=== PATIENT | female | born 1950 | race Caucasian/White ===

== ENCOUNTER 2019-05-07 08:00 | Outpatient (CLI) | payer MEDICARE, MEDICAID ==
[~2019-05-07 08:00] MED LIST: CYCLOBENZAPRINE10 MG PO
--- NOTE | 2019-05-07 15:53 | NUR ---
1500 PT HAS A 100MM SYSTOLIC VARIANCE. RIGHT ARM B/P HIGHER THAN LEFT ARM. CALLED DR. GARNICA'S OFFICE AND SPOKE WITH SOTO WHO STATES SHE WILL NOTIFY DR GARNICA AND CALL ME BACK WITH INSTRUCTIONS. 1515 SPOKE WITH SOTO WHO STATES THAT RADIOLOGY WILL BE EVALUATING SOME OF HER PAST STUDIES TO CHECK HER SUBCLAVIAN. IT MAY BE NECESSARY TO GET FURTHER RADIOLOGY TESTING ON MONDAY. INFORMATION PASSED TO PATIENT. PT HAS BEEN EVALUATED BY ANESTHESIS. RESPIRATORY EDUCATION DONE BY RT.
[2019-05-07 15:54] LABS: HEMATOCRIT 38.2 % (36.0-48.0); HEMOGLOBIN 12.8 g/dL (12-16); LYMPHOCYTES 35.7 % (15-50); MCH 29.2 pg (26.0-34.0); MCHC 33.5 g/dL (31.0-37.0); MEAN PLATELET VOLUME 8.4 fL (7.4-10.4); NEUTROPHILS 60.6 % (40-80); PLATELET COUNT 222 10x3/uL (130-400); RBC 4.39 10x6/uL (4.00-5.40); WBC 6.1 10x3/uL (4.8-10.8)
[2019-05-07 16:00] LABS: INR 0.93 (0.85-1.17); PROTIME 12.5 SECONDS (11.6-15.0)
[2019-05-07 16:01] LABS: APTT 28.8 SECONDS (22.8-39.4)
[2019-05-07 16:04] LABS: BILIRUBIN NEGATIVE (NEGATIVE); GLUCOSE NEGATIVE (NEGATIVE); KETONE NEGATIVE (NEGATIVE); NITRITE POSITIVE (NEGATIVE); RED CELLS - URINE NONE SEEN /hpf (0-5); UROBILINOGEN NORMAL (NORMAL); WHITE CELLS - URINE 25-50 /hpf (NEGATIVE)
[2019-05-07 16:05] LABS: BACTERIA MANY /hpf (NEGATIVE); EPITHELIAL CELLS OCC /hpf (0-5)
[2019-05-07 16:23] LABS: ALBUMIN 3.5 g/dL (3.4-5.0); ANION GAP 13.1 mmol/L (8-16); BILIRUBIN - TOTAL 0.45 mg/dL (0.2-1.3); CARBON DIOXIDE 28.2 mmol/L (21.0-32.0); CREATININE - SERUM 1.7 mg/dL (0.6-1.3); POTASSIUM - SERUM 4.3 mmol/L (3.5-5.1); PROTEIN - SERUM 8.3 g/dL (6.4-8.2)
[2019-05-07 16:24] LABS: CHOL - HDL RATIO 5.1 ratio (2.3-4.1); LDL-HDL RATIO 3.3 ratio (1.5-3.5)
[2019-05-08] MEDS ORDERED: APAP325 MG PO (12:37)
[2019-05-08] MEDS ORDERED: BAYER CHEWABLE81 MG PO (12:38)
[2019-05-08] MEDS ORDERED: VOLTAREN100 GM TOPICAL (12:39)
[2019-05-08] MEDS ORDERED: LISINOPRIL2.5 MG PO (12:39)
[2019-05-08] MEDS ORDERED: ATIVAN0.5 MG PO (12:40)
[2019-05-08] MEDS ORDERED: MECLIZINE HCL25 MG PO (12:40)
[2019-05-08] MEDS ORDERED: RANITIDINE HCL150 M1 PO (12:41)
[2019-05-08] MEDS ORDERED: MELATONIN5 MG PO (12:41)
[2019-05-08] MEDS ORDERED: SMZ-TMP DS 800-1 TAB PO (15:40)
[2019-05-29 13:20] VITALS: BMI 25.2
== END 2019-05-07 08:01 | disposition home or self-care (01) ==
LOC: D.PAN 08:00 → EDSTATUS 05-09 07:30 → D.SDCHOLD 05-09 07:30
PROVIDERS: Anesthesiology; ATTEND Thoracic Surgery (Cardiothoracic Vascular Surgery)
DX: I65.22 Occlusion and stenosis of left carotid artery (principal)

== ENCOUNTER 2019-05-08 12:08 | Outpatient (CLI) | payer MEDICARE, MEDICAID ==
[~2019-05-08] VITALS: Ht 162.6 cm; Wt 65.0 kg
--- NOTE | ~2019-05-08 | HEMODYNAMI ---
PATIENT:CANDICE LOMBARDO MEDICAL RECORD: [id number] : 46 LOCATION:DCARLO ADMISSION DATE: 05/08/19 Generatedon:05/08/201915:05 Patient name: CANDICE LOMBARDO Patient #: [id number] SSN: [id number] : 1950 Date of study: 05/08/2019 Page: Of Hemodynamic Procedure Report Patient Data Patient Demographics Procedure consent was obtained First Name: CANDICE Gender: Female Last Name: GRUPO : 1950 Patient #: [id number] Age: 69 year(s) Race: SSN: [id number] Additional ID: [id number] Contact details Address: [address] [place] [address] State: [place] City: [facility] Zip code: [address] Past Medical History Allergies Allergen Reaction Date Comments Reported Morphine 05/08/2019 Admission Admission Data Admission Date: 05/08/2019 Admission Time: 12:08 Arrival Date: 05/08/2019 Arrival Time: 0:00 Admit Source: Other Insurance Payor: Medicare [facility] #: [id number] Height (in.): 64.17 BSA: 1.7 (m2) Height (cm.): 163 BMI: 24.46 (kg/m2) Weight (lbs.): 143.3 Weight (kg.): 65 Lab Results Lab Result Date: 05/08/2019 Lab Result Time: 0:00 Biochemistry Name Units Result Min Max BUN mg/dl 27 --(----)-* 7 18 Creatinine mg/dl 1.8 --(----)-* 0.6 1.3 eGFR ml/min 29 *-(----)-- 90 120 NONAFRICAN CBC Name Units Result Min Max Hematocrit % 37.4 *-(----)-- 42 54 Hemoglobin g/dl 12.6 -*(----)-- 13.5 17.5 Procedure Procedure Types Cath Procedure Diagnostic Procedure LHC LHC w/Coronaries Procedure Description Procedure Date Procedure Date: 05/08/2019 Procedure Start Time: 14:50 Procedure End Time: 15:04 Procedure Staff Name Function Darryn Fish MD Performing Physician Reshma Medina RT Monitor Natalie Jaquez RT Scrub Shelly Morfin RN Nurse Procedure Data Cath Procedure Fluoroscopy Diagnostic fluoroscopy Total fluoroscopy Time: 1.4 time: 1.4 min min Diagnostic fluoroscopy Total fluoroscopy dose: 25 dose: 25 mGy mGy Contrast Material Contrast Material Type Amount (ml) Isovue 370 27 Entry Location Entry Primary Successful Side Size Upsize Upsize Entry Closure Succes sful Closure Location (Fr) 1 (Fr) 2 (Fr) Remarks Device Remarks Femoral Right 5 Fr Exoseal artery Estimated blood loss: 5 ml Diagnostic catheters Device Type Used For End Catheter Placement DIAGNOSTIC IM 5Fr Procedure catheter ([id number]) Procedure Complications No complications Procedure Medications Medication Administration Route Dosage 0.9% NaCl I.V. 100 ml/hr Oxygen etCO2 Nasal cannula 2 l/min Lidocaine 2% added to field 20 Heparin Flush Bag added to field 2 bags (1000units/500ml NS) Versed I.V. 2 mg Fentanyl I.V. 50 mcg Fentanyl I.V. 50 mcg Hemodynamics Rest BSA: 1.7 (m2) HGB: 12.6 (g/dl) O2 Consumption: Estimated: 158.06 (ml/min) O2 Con sumption indexed: Estimated:92.98 (ml/min/m) Heart Rate: 73 (bpm) Snapshots Pre Cath Intra NCS Post Cath Vital Signs Time Heart Resp SPO2 etCO2 NIBP (mmHg) Rhythm Pain Sedation Rate (ipm) (%) (mmHg) Status Level (bpm) 14:36:29 79 24 97 35.9 Measuring NSR 0 (11) 10(A) , No pain 14:37:06 77 26 98 19 219/89(159) NSR 0 (11) 10(A) , No pain 14:41:40 73 20 99 39.6 195/77(152) NSR 0 (11) 10(A) , No pain 14:46:07 69 19 100 35.1 184/80(146) NSR 0 (11) 10(A) , No pain 14:50:41 69 11 100 30.6 179/79(142) NSR 0 (11) 10(A) , No pain 14:55:09 65 16 100 37.3 170/69(134) NSR 0 (11) 10(A) , No pain 14:59:33 71 13 100 35.9 163/74(128) NSR 0 (11) 10(A) , No pain 15:04:00 62 15 100 37.3 167/68(135) NSR 0 (11) 10(A) , No pain Medications Time Medication Route Dose Verified Delivered Reason Notes Eff ectiveness by by 14:34:49 0.9% NaCl I.V. 100 Darryn Shelly used for ml/hr Abe Morfin striper machine 14:34:55 Oxygen etCO2 2 Darryn Shelly used for Nasal l/min Abe Morfin procedure cannula RN 14:35:00 Lidocaine 2% added 20ml Darryn Darryn for local to vial Abe Fish MD anesthetic field 14:35:04 Heparin Flush added 2 Darryn Darryn used for Bag to bags Abe Fish MD procedure (1000units/500ml field NS) 14:48:43 Versed I.V. 2 mg Darryn Shelly for Abe Morfin sedation RN 14:48:51 Fentanyl I.V. 50 Darryn Shelly for mcg Abe Morfin sedation RN 14:53:40 Fentanyl I.V. 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 Start room use. 14:25:36 Lab Result : BUN 27 mg/dl 14:25:36 Lab Result : eGFR NONAFRICAN 29 ml/min 14:25:36 Lab Result : Creatinine 1.8 mg/dl 14:25:36 Lab Result : Hemoglobin 12.6 g/dl 14:25:36 Lab Result : Hematocrit 37.4 % 14:25:43 Arrival Date: 05/08/2019 12:00:00 AM 14:26:02 Insurance Payor : Medicare 14:26:09 Patient Height : 64.17 inches 14:26:15 Patient Weight : 143.3 lbs 14:26:18 Admit Source: Other 14:27:29 Procedure Status Elective Heart Cath (OP). 14:27:50 Time tracking: Regular hours (M-F 7:00 - 5:00) 14:27:58 Plan of Care:Hemodynamics will remain stable., Cardiac rhythm will remain stable., Comfort level will be maintained., Respiratory function will remain adequate., Patient/ family verbilizes understanding of procedure., Procedure tolerated without complication., Recovers from procedure without complications.. 14:28:06 Patient received from Pre/Post Procedure Room to CCL 1 Alert and oriented. Tansferred to table in Supine position. 14:28:09 Warm blankets applied, and courtney hugger turned on for patient comfort. 14:28:10 Correct patient and procedure confirmed by team. 14:28:10 ECG and BP/O2 sat monitors applied to patient. 14:31:18 H&P Date Dictated: 05/08/2019 Within 30 days and on chart., H&P Addendum completed by physician on day of procedure. (MUST COMPLETE FOR ALL OUTPATIENTS). 14:31:20 Pre-procedure instructions explained to patient. 14:31:20 Pre-op teaching completed and patient verbalized understanding. 14:31:26 Family unavailable. 14:31:32 Patient NPO since Midnight. 14:31:39 Patient allergic to Morphine 14:31:42 Is patient on blood thinner?No 14:31:47 Patient diabetic? BORDERLINE 14:32:14 Patient not . Patient is over age 55. 14:32:21 Previous problem with sedation/anesthesia? No ? 14:32:22 Snore? Yes 14:32:24 Sleep apnea? No 14:32:25 Deviated septum? No 14:32:25 Opens mouth fully? Yes 14:32:28 Airway obstruction? No ? 14:32:30 Sticks out tongue? Yes 14:32:34 Dentures? Yes TOP IN 14:32:45 Pre procedure: right dorsailis pedis pulse 2+ Normal; easily identifiable; not easily obliterated 14:34:40 Vital chart was started 14:34:49 0.9% NaCl 100 ml/hr I.V. was administered by Shelly Morfin RN; used for procedure; Verbal order read back and verified. 14:34:55 Oxygen 2 l/min etCO2 Nasal cannula was administered by Shelly Morfin RN; used for procedure; Verbal order read back and verified. 14:35:00 Lidocaine 2% 20ml vial added to field was administered by Darryn Fish MD; for local anesthetic; Verbal order read back and verified. 14:35:01 Patient pain scale 0/10 ?. 14:35:04 Heparin Flush Bag (1000units/500ml NS) 2 bags added to field was administered by Darryn Fish MD; used for procedure; Verbal order read back and verified. 14:35:11 IV patent on arrival in left hand with 0.9% NaCl at [facility]. 14:35:13 Lab results completed and on chart. 14:35:21 Right groin area was prepped with chlora-prep and draped in sterile fashion 14:35:22 Alarms reviewed by R. N. 14:35:22 Sharps counted by scrub and verified by R.N. 14:37:56 Stress Test: no; N/A ? 14:37:59 Risk of Mortality: 0.1 14:38:13 Risk of blood transfusion: 2.5 14:38:15 Risk of ORLANDO: 4.0 14:39:31 Full Disclosure recording started 14:39:33 Baseline sample Acquired. 14:39:42 Use device set Femoral Dx 14:39:44 ACIST Syringe (67660) opened to sterile field. 14:39:45 Bag Decanter (2002S) opened to sterile field. 14:39:46 Medline Cath Pack ([id number]) opened to sterile field. 14:39:54 DIAGNOSTIC Multipack 5Fr catheter set (XS7788) opened to sterile field. 14:39:56 SHEATH 5FR Bonnyman (HTO471) opened to sterile field. 14:39:57 EMERALD Guide Wire (294-911) opened to sterile field. 14:40:01 ACIST Hand Control (97602) opened to sterile field. 14:40:01 ACIST Manifold (78010) opened to sterile field. 14:41:34 Rhythm: sinus rhythm 14:47:00 --------ALL STOP TIME OUT------ 14:47:00 Final Timeout: patient, procedure, and site verified with staff and physician. All members of the team are in agreement. 14:47:02 Right groin site verified by team. 14:47:05 Fire Safety Assessment: A--An alcohol-based skin anteseptic being used preoperatively., C--Open oxygen or nitrous oxide is being used., D--An ESU, laser, or fiber-optic light is being used. 14:47:08 Physical assessment completed. ASA score P 2 - A patient with mild systemic disease as per Darryn Fish MD. 14:47:13 4) 15-29 Severley reduced kidney function. 14:47:17 Maximum allowable contrast dose (3.7 X eGFR X 0.75)80 ml. 14:47:23 Sedation plan: IV Moderate Sedation Medication:Versed, Fentanyl 14:47:27 Procedure started. 14:48:43 Versed 2 mg I.V. was administered by Shelly Morfin RN; for sedation; Verbal order read back and verified. 14:48:51 Fentanyl 50 mcg I.V. was administered by Shelly Morfin RN; for sedation; Verbal order read back and verified. 14:50:16 Local anesthetic to right femoral artery with Lidocaine 2% by Darryn Fish MD.INITIAL ACCESS ONLY 14:50:21 A 5 Fr sheath was inserted into the Right Femoral artery 14:51:10 A DIAGNOSTIC IM 5Fr catheter ([id number]) was advanced over the wire and used for Procedure. 14:52:49 Left carotid angiography performed. 14:53:03 Injector settings: Ml/sec: 3, Volume: 6, 14:53:40 Fentanyl 50 mcg I.V. was administered by Shelly Morfin RN; for sedation; Verbal order read back and verified. 14:54:10 Left subclavian angiography performed 14:54:37 Injector settings: Ml/sec: 3, Volume: 6, 14:55:50 Catheter removed. 14:57:20 EXOSEAL 5Fr (EX500) opened to sterile field. 14:59:04 Sheath removed intact; hemostasis achieved with Exoseal to the Right Femoral artery. 15:00:15 Procedure ended.(Physican Out) 15:00:20 Fluoroscopy time 01.40 minutes. 15:00:28 Fluoroscopy dose: 25 mGy 15:00:28 Flurop Dose total: 25 15:00:39 Dose Area Product 3034 mGy/cm. 15:00:43 Contrast amount:Isovue 370 27ml. 15:00:47 Maximum allowable dose exceeded? No. 15:00:48 Sharps counted by scrub and verified by R.N. 15:00:54 Post-op/insertion site Right Femoral artery dressed using a 4 x 4 and Tegaderm. 15:00:58 Post right femoral artery:stable, soft, clean and dry 15:01:01 Post Procedure Pulses reassessed and unchanged 15:01:04 Post procedure: right dorsailis pedis pulse 2+ Normal; easily identifiable; not easily obliterated. 15:01:07 Post-procedure physical assessment completed. ASA score P 2 - A patient with mild systemic disease as per Darryn Fish MD. 15:01:09 Post procedure rhythm: unchanged. 15:01:12 Estimated blood loss: 5 ml 15:01:14 Post procedure instruction explained to patient.Patient verbalizes understanding. 15:01:15 Patient needs reinforcement of post procedure teaching. 15:04:03 Procedure and supply charges have been captured, reviewed, submitted and are correct. 15:04:07 Procedure Complication : No complications 15:04:31 4Vessel Findings: surgery consult 15:04:32 Operative report dictated upon procedure completion. 15:04:32 See physician's report for complete and final results. 15:04:36 Report given to Pre/Post Procedure Room. 15:04:40 Patient transfered to Pre/Post Procedure Room with Stretcher. 15:04:42 Procedure ended. 15:04:42 Full Disclosure recording stopped 15:04:46 End room use (Document Last) 15:04:57 End room use (Document Last) 15:05:17 End room use (Document Last) 15:05:36 Vital chart was stopped Device Usage Item Name Manufacture Quantity Catalog Hospital Part Current Minimal L ot# / Number Charge Number Stock Stock Serial# Code ACIST Acist 1 06941 921536 907112 343085 20 Syringe Medical (01270) Systems Inc Bag Microtek 1 163853 78618 994153 5 Decanter Medical Inc. () Medline Medline 1 [id number] 630727 72487 969982 5 Cath Pack ([id number]) DIAGNOSTIC Cardinal 1 MD2854 096514 09507 895132 30 Multipack Health 5Fr catheter set (NO6566) SHEATH 5FR Terumo 1 NRO214 262572 851924 101176 5 Bonnyman (DKL257) EMERALD Cardinal 1 757-472 411954 053019 419898 5 Guide Wire [facility] (502-455) ACIST Hand Acist 1 89335 961021 591871 557089 5 Control Medical (14075) Systems Inc ACIST Acist 1 47836 587958 890299 680426 5 Manifold Medical (43860) Systems Inc DIAGNOSTIC Cardinal 1 177363P 257481 943210 155909 5 IM 5Fr Health catheter ([id number]) EXOSEAL 5Fr Cardinal 1 EX500 896729 754664 816410 10 (EX500) Health Signature Audit [place] Stage Time Signature Unsigned Intra-Procedure 05/08/2019 Reshma Medina 3:04:57 PM RT(R) Intra-Procedure 05/08/2019 Shelly Morfin 3:05:17 PM RN Intra-Procedure 05/08/2019 Darryn Fish MD 3:05:34 PM [facility] [address] [place] [address]
[2019-05-08] MEDS ORDERED: APAP325 MG PO (12:37)
[2019-05-08] MEDS ORDERED: BAYER CHEWABLE81 MG PO (12:38)
[2019-05-08] MEDS ORDERED: VOLTAREN100 GM TOPICAL (12:39)
[2019-05-08] MEDS ORDERED: LISINOPRIL2.5 MG PO (12:39)
[2019-05-08] MEDS ORDERED: ATIVAN0.5 MG PO (12:40)
[2019-05-08] MEDS ORDERED: MECLIZINE HCL25 MG PO (12:40)
[2019-05-08] MEDS ORDERED: RANITIDINE HCL150 M1 PO (12:41)
[2019-05-08] MEDS ORDERED: MELATONIN5 MG PO (12:41)
[2019-05-08 12:46] VITALS: BP 152/95; Ht 162.6 cm; Wt 65.0 kg
[2019-05-08 13:22] LABS: ANION GAP 12.5 mmol/L (8-16); CALCIUM 9.2 mg/dL (8.5-10.1); CARBON DIOXIDE 27.8 mmol/L (21.0-32.0); CHOL - HDL RATIO 4.2 ratio (2.3-4.1); CREATININE - SERUM 1.8 mg/dL (0.6-1.3); LDL-HDL RATIO 2.7 ratio (1.5-3.5); POTASSIUM - SERUM 4.3 mmol/L (3.5-5.1)
[2019-05-08 13:39] LABS: HEMATOCRIT 37.4 % (36.0-48.0); HEMOGLOBIN 12.6 g/dL (12-16); LYMPHOCYTES 32.7 % (15-50); MCH 29.2 pg (26.0-34.0); MCHC 33.7 g/dL (31.0-37.0); MCV 86.6 fL (80.0-100.0); MEAN PLATELET VOLUME 9.1 fL (7.4-10.4); NEUTROPHILS 61.1 % (40-80); PLATELET COUNT 248 10x3/uL (130-400); RBC 4.32 10x6/uL (4.00-5.40); RDW 11.9 % (11.5-14.5); WBC 5.6 10x3/uL (4.8-10.8)
[2019-05-08 14:28] LABS: BILIRUBIN NEGATIVE (NEGATIVE); GLUCOSE NEGATIVE (NEGATIVE); KETONE NEGATIVE (NEGATIVE); NITRITE POSITIVE (NEGATIVE); UROBILINOGEN NORMAL (NORMAL)
[2019-05-08 14:29] LABS: BACTERIA MANY /hpf (NEGATIVE); EPITHELIAL CELLS 0-5 /hpf (0-5); RED CELLS - URINE OCC /hpf (0-5)
--- NOTE | 2019-05-08 15:12 | NUR ---
PT ARRIVED BY STRETCHER. PLACED ON MONITORS. ASSESSMENT COMPLETED. VSS. CALL LIGHT WITHIN REACH. NO FAMILY AT BEDSIDE AT THIS TIME.
--- NOTE | 2019-05-08 15:27 | NUR ---
RIGHT GROIN DRESSING C/D/I. NO S/S OF HEMATOMA NOTED. CALL LIGHT WITHIN REACH.
[2019-05-08] MEDS ORDERED: SMZ-TMP DS 800-1 TAB PO (15:40)
--- NOTE | 2019-05-08 15:57 | NUR ---
RIGHT GROIN DRESSING C/D/I. NO S/S OF HEMATOMA NOTED. CALL LIGHT WITHIN REACH. VSS. NO NEEDS AT THIS TIME. TOLERATING SIPS OF WATER. DENIES NAUSEA/PAIN.
--- NOTE | 2019-05-08 16:30 | NUR ---
HEAD OF BED INC TO 30 DEGREES. TOLERATED WELL. RIGHT GROIN DRESSING C/D/I. NO S/S OF HEMATOMA NOTED. PT SET UP WITH SANDWICH TRAY AND DRINK. DENIES NAUSEA/PAIN AT THIS TIME.
--- NOTE | 2019-05-08 16:55 | NUR ---
PT ON BEDPAN. VOIDED APPROX 250cc OF PETEY COLORED URINE. NARESH-CARE GIVEN.
--- NOTE | 2019-05-08 17:18 | NUR ---
RIGHT GROIN DRESSING C/D/I. NO S/S OF HEMATOMA NOTED. DISCUSSED DISCHARGE INSTRUCTIONS WITH PT. SHE VOICED UNDERSTANDING. DR. GARNICA'S NURSE SOTO, RN CALLED IN BACTRIM RX TO PT'S PHARMACY. PT IS AWARE. PIV D/C'D WITH CATH TIP INTACT. TOLERATED WELL. PT INSTRUCTED TO GET UP AND DRESSED AT THIS TIME.
--- NOTE | 2019-05-08 17:30 | NUR ---
PT TAKEN DOWN TO VEHICLE BY WHEELCHAIR. NO S/S OF DISTRESS NOTED. ALL BELONGINGS AND PAPERWORK IN HAND.
== END 2019-05-08 17:30 | disposition home or self-care (01) ==
LOC: D.CATH 12:08
PROVIDERS: Thoracic Surgery (Cardiothoracic Vascular Surgery); ATTEND Internal Medicine Cardiovascular Disease
DX: I65.22 Occlusion and stenosis of left carotid artery (principal); I10 Essential (primary) hypertension; Z72.0 Tobacco use

== ENCOUNTER 2019-05-12 10:01 | Emergency (ER) | payer MEDICARE, MEDICAID ==
[~2019-05-12] VITALS: Ht 162.6 cm; Wt 65.0 kg
[~2019-05-12 10:01] MED LIST changes: +APAP325 MG PO; +ATIVAN0.5 MG PO; +BAYER CHEWABLE81 MG PO; +LISINOPRIL2.5 MG PO; +MECLIZINE HCL25 MG PO; +MELATONIN5 MG PO; +RANITIDINE HCL150 M1 PO; +SMZ-TMP DS 800-1 TAB PO; +VOLTAREN100 GM TOPICAL
[2019-05-12 10:04] VITALS: Ht 162.6 cm; Wt 65.0 kg
[2019-05-12 10:13] LABS: BILIRUBIN NEGATIVE (NEGATIVE); GLUCOSE NEGATIVE (NEGATIVE); KETONE NEGATIVE (NEGATIVE); NITRITE NEGATIVE (NEGATIVE); SPECIFIC GRAVITY 1.005 (1.005-1.020); UROBILINOGEN NORMAL (NORMAL)
[2019-05-12 10:43] LABS: BASOPHILS 0.2 % (0-2); EOSINOPHILS 0.5 % (0-7); HEMOGLOBIN 11.5 g/dL (12-16); IMMATURE GRANULOCYTES 0.2 % (0-5); LYMPHOCYTES 12.8 % (15-50); MCHC 32.9 g/dL (31.0-37.0); MCV 88.2 fL (80.0-100.0); MEAN PLATELET VOLUME 8.3 fL (7.4-10.4); MONOCYTES 2.3 % (2-11); RBC 3.97 10x6/uL (4.00-5.40); RDW 12.1 % (11.5-14.5); WBC 4.3 10x3/uL (4.8-10.8)
[2019-05-12 10:46] LABS: PLATELET COUNT 167 10x3/uL (130-400)
[2019-05-12 10:50] LABS: ANION GAP 15.7 mmol/L (8-16); CALCIUM 9.2 mg/dL (8.5-10.1); CARBON DIOXIDE 22.1 mmol/L (21.0-32.0); CREATININE - SERUM 2.4 mg/dL (0.6-1.3); POTASSIUM - SERUM 4.8 mmol/L (3.5-5.1)
[2019-05-12 10:56] LABS: ALBUMIN 3.2 g/dL (3.4-5.0); BILIRUBIN - TOTAL 0.3 mg/dL (0.2-1.3); PROTEIN - SERUM 7.8 g/dL (6.4-8.2)
[2019-05-12] MEDS ORDERED: PHENERGAN25 M1 PO (10:59)
[2019-05-12 11:42] VITALS: BP 112/76
== END 2019-05-12 11:43 | disposition home or self-care (01) ==
LOC: D.ER 10:01
PROVIDERS: Family Medicine
DX: R11.2 Nausea with vomiting, unspecified (principal); N39.0 Urinary tract infection, site not specified; I10 Essential (primary) hypertension; K21.9 Gastro-esophageal reflux disease without esophagitis; Z72.0 Tobacco use

== ENCOUNTER 2019-05-17 09:23 | Inpatient (IN) | payer MEDICARE, MEDICAID ==
[~2019-05-17] VITALS: Ht 162.6 cm; Wt 65.1 kg
[~2019-05-17 09:23] MED LIST changes: +PHENERGAN25 M1 PO
[2019-05-17 10:23] LABS: BILIRUBIN NEGATIVE (NEGATIVE); GLUCOSE NEGATIVE (NEGATIVE); KETONE NEGATIVE (NEGATIVE); NITRITE NEGATIVE (NEGATIVE); SPECIFIC GRAVITY 1.015 (1.005-1.020); UROBILINOGEN NORMAL (NORMAL)
[2019-05-17 10:47] LABS: HEMATOCRIT 35.5 % (36.0-48.0); HEMOGLOBIN 11.6 g/dL (12-16); MCH 29.1 pg (26.0-34.0); MCHC 32.7 g/dL (31.0-37.0); MCV 89.2 fL (80.0-100.0); MEAN PLATELET VOLUME 8.2 fL (7.4-10.4); RBC 3.98 10x6/uL (4.00-5.40); RDW 12.4 % (11.5-14.5); WBC 6.2 10x3/uL (4.8-10.8)
[2019-05-17 10:57] LABS: APTT 28.6 SECONDS (22.8-39.4); INR 0.99 (0.85-1.17)
[2019-05-17 11:02] LABS: ALBUMIN 3.1 g/dL (3.4-5.0); ANION GAP 12.5 mmol/L (8-16); BILIRUBIN - TOTAL 0.47 mg/dL (0.2-1.3); CALCIUM 8.4 mg/dL (8.5-10.1); CARBON DIOXIDE 24.8 mmol/L (21.0-32.0); CREATININE - SERUM 2.2 mg/dL (0.6-1.3); POTASSIUM - SERUM 4.3 mmol/L (3.5-5.1); PROTEIN - SERUM 7.5 g/dL (6.4-8.2)
[2019-05-20] VITALS (60 sets, daily range): BP systolic 109–157; BP diastolic 41–73; BMI 24.2; BMI 25.4
[2019-05-20] MEDS ORDERED: PROBIOTIC1 EAC1 PO (06:03)
--- NOTE | 2019-05-20 11:42 | NUR ---
PT RECIEVED ALERT, ABLE TO FOLLOW COMMANDS EQUAL BILATERALLY, BP TAKEN IN BOTH ARMS PER DR GARNICA THEN ORDERS TO RESERVE L ARM, R IJ CVL DRESSING CDI, SEE IV FLOWSHEET, L NECK INCISION DRESSING CDI WITH SEJAL DRAIN COMPRESSED WITH BLOODY DRAINAGE, ICE PACK APPLIED, R RADIAL A LINE ZEROED, WRIST PROTECTOR IN PLACE, GOOD WAVEFORM, TEDS/SCDS IN PLACE, ORTIZ DRAINING YELLOW URINE
--- NOTE | 2019-05-20 12:09 | NUR ---
CALLED PHARMACY X2 FOR ZINACEF, HOLDING PO MEDS AT THIS TIME DUE TO NAUSEA DR GARNICA AWARE
--- NOTE | 2019-05-20 18:25 | NUR ---
PT REPOSITIONED Q2 HOURS, DENIES ALL NEEDS, VSS, TOLERATING WATER WELL, WILL CONTINUE TO MONITOR
--- NOTE | 2019-05-20 19:00 | NUR ---
PT ASSESSMENT COMPLETED AT THIS TIME, NO CHANGES NOTED FROM NURSE REPORT, VSS, WILL MONITOR FOR CHANGES
--- NOTE | 2019-05-20 21:00 | NUR ---
PT AWAKE WATCHING TV, PT AAOX4, PT TOLERATING SIPS OF WATER AND ICE CHIPS
--- NOTE | 2019-05-20 23:00 | NUR ---
PT REASSESSMENT COMPLETED AT THIS TIME, NO CHANGES NOTED FROM PREVIOUS EXAM, WILL MONITOR FOR CHANGES
[2019-05-21] VITALS (92 sets, daily range): BP systolic 111–166; BP diastolic 49–82
--- NOTE | 2019-05-21 01:00 | NUR ---
PT RESTING WITH EYES CLOSED, RESP EVEN AND NON-LABORED, VSS WILL MONITOR FOR CHANGES
--- NOTE | 2019-05-21 03:00 | NUR ---
PT REASSESSMENT COMPLETED AT THIS TIME, NO CHANGES NOTED FROM PREVIOUS EXAM, VSS, WILL MONITOR FOR CHANGES
--- NOTE | 2019-05-21 04:42 | NUR ---
PT STATES THAT HER NECK IS HURTING WORSE, PT WAS GIVEN PRN PAIN MED AT THIS TIME
--- NOTE | 2019-05-21 07:00 | NUR ---
PT OOB TO CHAIR. TOLERATED WELL. POSITIONED FOR COMFORT
--- NOTE | 2019-05-21 07:52 | OP ---
PATIENT NAME: CANDICE LOMBARDO MEDICAL RECORD: [id number] :46 LOCATION:D.CVI D.CV04 ADMISSION DATE:05/20/19 SURGEON: MARTINE GARNICA MD DATE OF OPERATION: 05/20/2019 SURGEON: Martine Garnica MD PROCEDURE PERFORMED: 1. Left carotid endarterectomy. 2. Left carotid subclavian bypass. PREOPERATIVE DIAGNOSES: Left carotid stenosis and left subclavian stenosis with subclavian steal. 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 ANESTHESIA: General endotracheal anesthesia. ESTIMATED BLOOD LOSS: 400 cc with 150 cc Cell Saver. COMPLICATIONS: None. SPECIMENS: None. CONDITION: Stable. DISPOSITION: CV ICU. OPERATIVE FINDINGS: Severe plaque in the common carotid artery and critical calcified stenosis of the proximal internal carotid artery. The plaque feathered well. A 6 mm PTFE graft was used and sewn onto the endarterectomy site and then brought through a tunnel to the left subclavian where the anastomosis was performed secondly flushing the graft toward the subclavian. INDICATION: Carotid stenosis and subclavian stenosis with steal. PROCEDURE IN DETAIL: The patient was brought to the operative suite. General anesthesia was obtained, the patient prepped and draped. Incision was made over the left clavicle taken down to the platysma. The clavicle head of the sternocleidomastoid muscle was divided and the scalene fat pad was dissected out. The phrenic nerve was visualized, retracted medially. The anterior scalene muscle was divided and the subclavian artery was identified, encircled with vessel loops. Oblique incision was made in the mid left neck over the carotid artery, taken down through subcutaneous tissue. Facial venous branches were divided between ligatures. The common carotid was dissected out and encircled with a vessel loop. External carotid thyroid branch were encircled with vessel loop. Internal carotid was dissected out distally. Heparin was given. After heparin circulated, back bleeding was controlled on the internal carotid with a bulldog clamp inflow with a vascular clamp and backbleeding on the external carotid and thyroid branch with vessel loops. EEG as well as cerebral oximetry were monitored for 2 minutes and were normal throughout the remainder of the cross clamp. The arteriotomy was begun. The common carotid artery taken out through OPERATIVE REPORT [id number] TERRY the region of dense calcification into a relatively normal region of internal carotid. The plaque was divided and the common carotid and later was divided more proximally in the common carotid due to thickened plaque; taken out the region of the distal common carotid. The eversion endarterectomy of the external carotid was performed. The calcified plaque was removed. The plaque feathered well distally. Thorough irrigation was undertaken. All bits of loose debris were removed. A 6 mm graft was bevelled appropriately and sutured to the endarterectomy. Backbleeding was allowed from all 3 major vessels. Anastomosis was completed and then the graft was flushed. Bleeding at the suture sites was noted and flow restored first to the external carotid and then to the internal carotid. The graft was tunneled to the subclavian artery and control of subclavian artery was performed with the vessel loops. Arteriotomy performed. Anastomosis performed, flushed proximally and distally; good Doppler signal and good augmentation noted. Protamine was given. Thorough irrigation was undertaken. Hemostasis was assured. Surgicel and later FloSeal were used for hemostasis. A drain was placed in the endarterectomy bed. Wound was closed with 3 layers of Dermabond. The patient was neurologically intact ICU. TRANSINT:[id number] Voice Confirmation ID: [id number] DOCUMENT ID: [id number] MARTINE GARNICA MD at 0752 CC: LATASHA VELASQUEZ M.D. [id number] DICTATION DATE: 05/20/19 1219 CONTACT LENS POLISHER: 05/20/19 1846 ADM IN [place] [id number] [place] [address]
--- NOTE | 2019-05-21 08:17 | NUR ---
SEJAL MEI DC'D BY DR GARNICA. MAURIZIO MARTÍNEZ'D AND MANUAL PRESSURE HELD FOR 5 MIN. DRSG APPLIED.
--- NOTE | 2019-05-21 12:10 | NUR ---
CLEVEPREX TITRATED OFF. CONTINUING TO TITRATE NITRO TO KEEP SBP < 140.
--- NOTE | 2019-05-21 13:00 | NUR ---
PT IS SNACKING ON LUNCH TRAY, DENIES HAVING APPETITE.
--- NOTE | 2019-05-21 19:00 | NUR ---
SHIFT ASSESSMENT COMPLETED, PT CARE ASSUMED, MONITORS ON AND WORKING, VITALS STABLE. PT AWAKE AND ALERT, CALL LIGHT WITHIN REACH, SEE FLOW SHEET FOR FURTHER DETAILS. WILL CONTINUE TO OBSERVE.
--- NOTE | 2019-05-21 19:37 | MORECARE ---
CASE MANAGEMENT DISCHARGE SUMMARY PATIENT: CANDICE LOMBARDO UNIT: [id number] ADM DATE: 05/20/19 AGE: 69 : 46 SEX: F ROOM/BED: [facility] AUTHOR: EILEEN OWENS PHYSICIAN: REFERRING PHYSICIAN: MARTINE GARNICA MD DATE OF SERVICE: 05/21/19 Discharge Plan Patient Name: CANDICE LOMBARDO Facility: [facility]:[place] : 1950 Planned Disposition: Home Anticipated Discharge Date: Discharge Date: Expected LOS: Initial Reviewer: [email or web address] Initial Review Date: 05/20/2019 Generated: 05/21/19 8:36 pm Patient Name: CANDICE LOMBARDO Page [id number] at 1937 All edits/amendments must be made on the electronic document DICTATION DATE: 05/21/191935 CONSUMER EDUCATOR: SOFIE 05/21/191935 RPT#: [id number] DC DATE: STATUS: ADM IN [facility] [address] [place] [address] END OF REPORT
--- NOTE | 2019-05-21 19:45 | MORECARE ---
CASE MANAGEMENT DISCHARGE SUMMARY PATIENT: CANDICE LOMBARDO UNIT: [id number] ADM DATE: 05/20/19 AGE: 69 : 48 SEX: F ROOM/BED: D.[facility] AUTHOR: ROMAN,DOC PHYSICIAN: REFERRING PHYSICIAN: MARTINE GARNICA MD DATE OF SERVICE: 05/21/19 Discharge Plan Patient Name: CANDICE LOMBARDO Facility: [facility]:[place] : 1950 Planned Disposition: Home Anticipated Discharge Date: Discharge Date: Expected LOS: Initial Reviewer: [email or web address] Initial Review Date: 05/20/2019 Generated: 05/21/19 8:44 pm Comments DCP- Discharge Planning Updated by [email or web address]: Pallavi Bowie on 05/21/19 6:[address] Patient Name: CANDICE LOMBARDO Admission Status: Urgent Accout number: [id number] Admission Date: 05-20-2019 : 1950 Admission Diagnosis: Attending: MARTINE GARNICA Current LOS: 1 Anticipated DC Date: Planned Disposition: Home Primary Insurance: [facility] [employer]IC[facility] SOLUTIONS Discharge Planning Comments: CM met with patient to complete initial dc planning assessment. CM educated patient on the CM role and verbal consent given by patient to complete assessment. Patient lives at home with her grand-daughter where she is independent with her care. At discharge patient plans to return home and feels this is a safe discharge. CM discussed availability of home health, rehab services, and medical equipment. Patient denied known discharge needs at this time. CM will continue to follow and will assist as needed with dc plans/needs. Food Science Technician: Pallavi Bowie DCPIA - Discharge Planning Initial Assessment Updated by [email or web address]: Pallavi Bowie on 05/21/19 7:40 pm * Is the patient Alert and Oriented? Yes * How many steps to enter\exit or inside your home? * PCP Ahsan * Pharmacy [facility] [address] / [address] * Preadmission Environment Home with Family * ADLs Independent * Equipment None * List name and contact numbers for known caregivers / representatives who currently or will assist patient after discharge: Renetta Magdaleno-daughter - [phone] Renetta Mauri Quinonez - [phone] * Verbal permission to speak to the caregivers and representatives has been obtained from the patient. Yes * Community resources currently utilized None * Additional services required to return to the preadmission environment? No * Can the patient safely return to the preadmission environment? Yes * Has this patient been hospitalized within the prior 30 days at any hospital? No Last DP export: 05/21/19 6:37 pm Patient Name: CANDICE LOMBARDO Page [id number] at 1945 All edits/amendments must be made on the electronic document DICTATION DATE: 05/21/191943 GARAGE DOOR SERVICE TECHNICIAN: SOFIE 05/21/191943 RPT#: [id number] DC DATE: STATUS: ADM IN [facility] [address] [place] [address] END OF REPORT
--- NOTE | 2019-05-21 21:00 | NUR ---
TITRATING NITRO PER ORDERS FOR BLOOD PRESSURE. MONITORS ON AND WORKING, PT AWAKE ALERT ORIENTED. CALL LIGHT WITHIN REACH, WILL CONTINUE TO OBSERVE.
[2019-05-22] VITALS (96 sets, daily range): BP systolic 116–170; BP diastolic 42–81
--- NOTE | 2019-05-22 01:30 | NUR ---
NITRO TITRATED PER ORDERS, STILL INEFFECTIVE, STARTED CLEVIPREX PER ORDERS. SEE IV FLOW SHEET. PT AWAKE AND ALERT, NO SIGNS/SYMPTOMS OF PAIN OR DISCOMFORT NOTED. CALL LIGHT WITHIN REACH, WILL CONTINUE TO OBSERVE.
--- NOTE | 2019-05-22 03:00 | NUR ---
CHG BATH AND LINEN CHANGE COMPLETED AT THIS TIME, PT AWAKE AND ALERT, NO SIGNS/SYMPTOMS OF PAIN OR DISCOMFORT NOTED. SEE FLOW SHEET FOR FURTHER DETAILS. WILL CONTINUE TO OBSERVE. CALL LIGHT WITHIN REACH.
--- NOTE | 2019-05-22 05:00 | NUR ---
PT SITTING UP IN CHAIR, PT TOLERATED WELL, MONITORS ON AND WORKING, CALL LIGHT WITHIN REACH, WILL CONTINUE TO OBSERVE.
[2019-05-22 05:26] LABS: BASOPHILS 0 % (0-2); EOSINOPHILS 0.5 % (0-7); HEMATOCRIT 25.4 % (36.0-48.0); IMMATURE GRANULOCYTES 0.5 % (0-5); LYMPHOCYTES 10.3 % (15-50); MCH 28.4 pg (26.0-34.0); MCHC 31.5 g/dL (31.0-37.0); MCV 90.1 fL (80.0-100.0); MEAN PLATELET VOLUME 8.7 fL (7.4-10.4); MONOCYTES 6.6 % (2-11); NEUTROPHILS 82.1 % (40-80); PLATELET COUNT 186 10x3/uL (130-400); RBC 2.82 10x6/uL (4.00-5.40); RDW 12.4 % (11.5-14.5); WBC 8.5 10x3/uL (4.8-10.8)
[2019-05-22 05:36] LABS: ANION GAP 13.3 mmol/L (8-16); CALCIUM 8.3 mg/dL (8.5-10.1); CARBON DIOXIDE 24.6 mmol/L (21.0-32.0); CREATININE - SERUM 1.9 mg/dL (0.6-1.3); POTASSIUM - SERUM 4.9 mmol/L (3.5-5.1)
--- NOTE | 2019-05-22 07:20 | NUR ---
SHIFT REPORT RECEIVED. PT UP IN CHAIR. ON ROOM AIR. INCISION WITH DRESSING TO LEFT NECK AND CRUZ. LEFT ARM RESERVE. RIJ WITH PLASMOLYTE AT 30ML/HR AND CLEVIPREX AT 2MG/HR. ORTIZ CATH WITH CLEAR YELLOW URINE NOTED. SHIFT ASSESMENT COMPLETED AND CHARTED IN FLOWSHEET. ICE WATER PROVIDED. CALL LIGHT IN REACH. WILL CONTINUE TO MONITOR.
--- NOTE | 2019-05-22 08:30 | NUR ---
MEAL TRAY AT BEDSIDE. PT STATES SHE DOESN'T HAVE AN APPETITE. AM MEDS GIVEN. DENIES FURTHER NEEDS AT THIS TIME. WILL CONTINUE TO MONITOR.
--- NOTE | 2019-05-22 09:15 | NUR ---
CALL RECEIVED FROM DAUGHTER. PASS CODE VERIFIED. BRIEF UP DATE GIVEN. SHE SPOKE WITH PT WELL. FEELS THAT PT SOUNDS WEAK AND IS CONCERN THAT SHE IS TOO WEAK TO GO HOME. ASSURE HER THAT HER CONCERNS WOULD BE MADE KNOW TO DR. GARNICA WHEN HE ROUNDED.
--- NOTE | 2019-05-22 13:30 | NUR ---
ORTIZ CATHETER DC'D AT THIS TIME PER ORDER. PT TOLERATED WELL. NO FURTHER NEEDS. WILL CONTINUE TO MONITOR.
--- NOTE | 2019-05-22 15:50 | NUR ---
CALL RECEIVED FROM DAUGHTER. PASS CODE VERIFIED. BRIEF UPDATE GIVEN.
--- NOTE | 2019-05-22 15:53 | NUR ---
RA- BP 141/44, LA- BP 123/59.
--- NOTE | 2019-05-22 18:50 | NUR ---
ASSISTED UP TO BEDSIDE COMMODE. VOIDED 100ML OF CONCENTRATED YELLOW URINE AT THIS TIME.
--- NOTE | 2019-05-22 19:38 | NUR ---
REPORT RECEIVED, SHIFT ASSESSMENT COMPLETED PER FLOW SHEET, SEE FOR DETAILS. INFORMED BY DAY SHIFT RN Ham VARNER THAT PER DR. GARNICA'S ORDERS TITRATE CLEVIPREX DRIP TO MAINTAIN SBP <150. PATIENT DENIES NEEDS AT THIS TIME, CALL LIGHT WITHIN REACH. WILL CONTINUE TO MONITOR. 2100- ASSISSTED TO BATHROOM, GAIT STEADY, VOID X1. ASSISSTED BACK IN BED, DENIES FURTHER NEEDS. CALL LIGHT WITHIN REACH. 2200- PATIENT NOTED TO BE SLEEPING, O2 SAT 89-91, PLACED ON 2 L NC. DENIES NEEDS AT THIS TIME, CALL LIGHT WITHIN REACH. 2305- REASSESSMENT COMPLETED PER FLOW SHEET, SEE FOR DETAILS. 0100- CHG BATH GIVEN, COMPLETE BED LINEN CHANGE PROVIDED, DENIES NEEDS. CALL LIGHT WITHIN REACH. 0312- REASSESSMENT COMPLETED PER FLOW SHEET, SEE FOR DETAILS. NO ACUTE DISTRESS NOTED, WILL CONTINUE TO MONITOR.
[2019-05-23] VITALS (81 sets, daily range): BP systolic 111–167; BP diastolic 37–95; Ht 162.6 cm; Wt 65.1 kg
--- NOTE | 2019-05-23 05:00 | NUR ---
RESTING, NO ACUTE DISTRESS NOTED, CALL LIGHT WITHIN REACH. WILL CONTINUE TO MONITOR.
--- NOTE | 2019-05-23 08:35 | NUR ---
0700 PT RECIEVED UP IN CHAIR ALERT AND ORIENTED VSS NO SIGNS OF PAIN, SEE SHIFT ASSESSMENT FOR DETAILS 0800 BREAKFAST TRAY SERVED 0830 AM MEDS GIVEN TOLERATED WELL
--- NOTE | 2019-05-23 10:32 | NUR ---
SPOKE WITH DESHAWN IN PHARMACY AWAITING HYDRALAZINE
[2019-05-23 11:59] LABS: BASOPHILS 0.1 % (0-2); EOSINOPHILS 1.2 % (0-7); HEMATOCRIT 25.1 % (36.0-48.0); IMMATURE GRANULOCYTES 0.3 % (0-5); LYMPHOCYTES 13.3 % (15-50); MCHC 31.9 g/dL (31.0-37.0); MCV 90.9 fL (80.0-100.0); MEAN PLATELET VOLUME 8.7 fL (7.4-10.4); NEUTROPHILS 79.1 % (40-80); PLATELET COUNT 187 10x3/uL (130-400); RBC 2.76 10x6/uL (4.00-5.40); RDW 12.4 % (11.5-14.5); WBC 7.4 10x3/uL (4.8-10.8)
[2019-05-23 12:13] LABS: ANION GAP 9.2 mmol/L (8-16); CALCIUM 7.8 mg/dL (8.5-10.1); CARBON DIOXIDE 27.4 mmol/L (21.0-32.0); CREATININE - SERUM 1.7 mg/dL (0.6-1.3); POTASSIUM - SERUM 4.6 mmol/L (3.5-5.1)
[2019-05-23 17:36] LABS: CALC OSMOLALITY 272 mosm/kg (275-300); CALCIUM 7.3 mg/dL (8.5-10.1); CARBON DIOXIDE 23.2 mmol/L (21.0-32.0); CHLORIDE - SERUM 99 mmol/L (98-107); GLUCOSE 141 mg/dL (74-106); POTASSIUM - SERUM 4.4 mmol/L (3.5-5.1); SODIUM 131 mmol/L (136-145); UREA NITROGEN 35 mg/dL (7-18)
--- NOTE | 2019-05-23 17:44 | NUR ---
PT ABLE TO REPOSITION SELF THROUGHOUT DAY,PER DR GARNICA WEANED CLEVIPREX TO KEEP BP LESS THAN 150, PT SPOKE WITH DR GARDUNO AND DR GARNICA IN DETAIL AFTER SPEAKING WITH DR GARDUNO PT STATED SHE WAS IN KIDNEY FAILURE, ATTEMPTED TO AGAIN DISCUSS WITH PT AND PT BEGAN CRYING THEN CALLING DAUGHTER, UNABLE TO UNDERSTAND WHY BP CAN NOT BE TAKEN ON LEFT ARM, ETC. DAUGHTER CALLED FOR UPDATE AND EXPLAINED WHAT BOTH DOCTORS HAD EXPLAINED TO PT ABOUT TAKING BP ON LEFT ARM AND WHY TO KEEP BP CONTROLLED, ETC AND DAUGHTER STATED UNDERSTANDING AND DENIED ALL QUESTIONS.
[2019-05-23 18:16] LABS: CREATININE - SERUM 0.5 mg/dL (0.6-1.3); eGFR NON AFRICAN AMERICAN > 90 mL/min (90-120)
--- NOTE | 2019-05-23 18:33 | NUR ---
RECIEVED CALL FROM DR GARDUNO ABOUT LASIX ORDER, TOLD HER THAT AFTER TALKING TO PTS DAUGHTER THE PT WAS VERY EMOTIONAL AND CRYING AND IS NOW COMPLAINING OF NAUSEA AND THAT SHE WAS GIVEN DOSE OF ZOFRAN. ORDERS TO CHANGE LASIX DOSE TO MORNING BELIEVES PT IS ANXIOUS.
--- NOTE | 2019-05-23 19:33 | NUR ---
PT RECEIVED UP IN CHAIR. ASSIST GIVEN TO BED WITH MONITOR CABLES. COMPLAINS OF PAIN TO NECK WITH PRN PAIN MEDICATIONS GIVEN. FRESH WATER GIVEN, NO OTHER NEEDS MADE KNOWN. CALL LIGHT IN REACH. WILL CONTINUE TO OBSERVE.
--- NOTE | 2019-05-23 21:02 | NUR ---
PT RESTING WITH EYES CLOSED AND CHEST RISING. NO S/S OF DISTRESS. EASILY AWOKEN TO VERBAL STIMULI. MEDICATIONS GIVEN PER MAR. NO NEEDS OR CONCERNS MADE KNOWN. CALL LIGHT IN REACH. WILL CONTINUE TO OBSERVE.
--- NOTE | 2019-05-23 23:08 | NUR ---
PT WITH EYES OPEN WATCHING TV. AMOLO PROVIDED PER REQUEST. CALL LIGHT IN REACH. WILL CONTINUE TO OBSERVE
[2019-05-23 23:52] LABS: BILIRUBIN NEGATIVE (NEGATIVE); GLUCOSE 50 mg/dL (NEGATIVE); KETONE NEGATIVE (NEGATIVE); NITRITE NEGATIVE (NEGATIVE); SPECIFIC GRAVITY 1.015 (1.005-1.020); UROBILINOGEN NORMAL (NORMAL)
[2019-05-23 23:53] LABS: BACTERIA FEW /hpf (NEGATIVE); EPITHELIAL CELLS 0-5 /hpf (0-5); RED CELLS - URINE 0-5 /hpf (0-5); WHITE CELLS - URINE 0-5 /hpf (NEGATIVE)
[2019-05-24] VITALS (13 sets, daily range): BP systolic 117–148; BP diastolic 41–56
--- NOTE | 2019-05-24 02:30 | NUR ---
PT RESTING WITH EYES CLOSED AND CHEST RISING. NO S/S OF DISTRESS. CALL LIGHT IN REACH. WILL CONTINUE TO OBSERVE.
[2019-05-24 05:59] LABS: BASOPHILS 0.2 % (0-2); EOSINOPHILS 3.2 % (0-7); HEMATOCRIT 22.8 % (36.0-48.0); IMMATURE GRANULOCYTES 0.7 % (0-5); LYMPHOCYTES 28.4 % (15-50); MCH 29.1 pg (26.0-34.0); MCHC 32.5 g/dL (31.0-37.0); MCV 89.8 fL (80.0-100.0); MEAN PLATELET VOLUME 8.5 fL (7.4-10.4); MONOCYTES 6.8 % (2-11); NEUTROPHILS 60.7 % (40-80); PLATELET COUNT 191 10x3/uL (130-400); RBC 2.54 10x6/uL (4.00-5.40); RDW 12.3 % (11.5-14.5); WBC 5.9 10x3/uL (4.8-10.8)
--- NOTE | 2019-05-24 06:00 | NUR ---
PT GIVEN BATH AND ASSISTED TO BATHROOM. URINE ONLY NOTED. COMPLETE LINEN CHANGE PROVIDED. PT UP IN CHAIR. CALL LIGHT IN REACH. WILL CONTINUE TO OBSERVE.
[2019-05-24 06:01] LABS: HEMOGLOBIN 7.4 g/dL (12-16)
[2019-05-24 06:04] LABS: ANION GAP 11.4 mmol/L (8-16); CALCIUM 7.9 mg/dL (8.5-10.1); CARBON DIOXIDE 25.7 mmol/L (21.0-32.0); POTASSIUM - SERUM 4.1 mmol/L (3.5-5.1)
--- NOTE | 2019-05-24 06:31 | NUR ---
DR GARNICA CALLED AND REPORTED CRITICAL HEMOGLOBIN OF 7.4. NO ORDERS RECEIVED.
--- NOTE | 2019-05-24 07:00 | NUR ---
BEDSIDE REPORT RECEIVED. SHIFT ASSESSMENT COMPLETED PER FLOWSHEET, SEE FLOWSHEET FOR INFORMATION. AT BEDSIDE, NEW ORDERS RECEIVED. PT STATED "I'M FEELING MUCH BETTER. I'M GETTING TO WHERE I NEED TO BE." NO NEEDS OR DISTRESS NOTED AT THIS TIME. VSS. WILL CONT TO MONITOR.
--- NOTE | 2019-05-24 08:44 | CN ---
PATIENT NAME:CANDICE LOMBARDO MEDICAL RECORD: [id number] : [birth year] LOCATION:[facility] ADMIT DATE: 05/20/19 ACCOUNT: [id number] CONSULTING PHYSICIAN: SHANNEN FERRRE MD REFERRING PHYSICIAN: MARTINE GARNICA MD DATE OF CONSULTATION: 05/23/2019 TIME OF CONSULTATION: Approximately 1:15. HISTORY OF PRESENT ILLNESS: This is a 69-year-old female who was a new patient to Vee Farnsworth APN, at [facility], back in March of this year when it was discovered she had a carotid bruit. Further workup showed carotid occlusive disease and she is admitted for carotid endarterectomy. I am consulted her for medical management further workup since March in our clinic shows that the patient has type 2 diabetes, not on insulin or any medicine for that matter. There is no history of hypertension, though she was started on low-dose lisinopril basically for kidney protection due to the diabetes. The patient was admitted and underwent left carotid endarterectomy and left carotid subclavian bypass on 05/20/[address] Garnica. She is still hospitalized due to continued blood pressure issues. The patient states she does not have a history of hypertension. She states her blood pressure in the left arm is normal and all the blood pressures here in the hospital are down on her right arm, which she says has given false elevated blood pressures since she had some sort of ORIF of fractured humerus about 7 years ago. PAST MEDICAL HISTORY: Again, a new diagnosis of diabetes with A1c of 7.0 back in March. Creatinine was 1.9 as well. PAST SURGICAL HISTORY: Left arm surgery of some sort and a left knee surgery and now the left carotid endarterectomy. CURRENT MEDICATIONS: Phenergan p.r.n. nausea and vomiting, lisinopril 2.5 mg once a day, acetaminophen 325 mg 1-2 p.r.n. pain, aspirin 81 mg a day, lorazepam 0.5 mg p.r.n. anxiety, probiotic once a day, meclizine 25 mg p.o. bedtime, ranitidine 150 mg p.o. daily, and melatonin 5 mg p.o. at bedtime. HABITS: She continues to smoke. Denies alcohol or drug use. SOCIAL HISTORY: She is not . She is retired. ALLERGIES: ANY EVERGREEN PLANT, CATS, AND DUST. FAMILY HISTORY: Her father is . He had some sort of cancer and mother is alive at 92 with history of breast cancer. REVIEW OF SYSTEMS: GENERAL: No major weight changes. HEENT: She does have some vision issues. She also has some seasonal allergies. CARDIOVASCULAR: She reports a history of a heart murmur. LUNGS: No known asthma, COPD, or emphysema. GASTROINTESTINAL: She has heartburn/reflux. GENITOURINARY: No significant problems there. MUSCULOSKELETAL: She has joint pains and back issues. PHYSICAL EXAMINATION: CONSULT REPORT [id number] CANDICE LOMBARDO GENERAL: She is awake and alert. She is sitting up in a chair. She does not appear in acute distress. She is afebrile, heart rate in the 70s and blood pressure is 142/61, and O2 sat 95%. HEENT: Grossly within normal limits. NECK: She has a dressing on the left side of the neck. IV access on the right side. HEART: Regular rate and rhythm. LUNGS: Fairly clear. ABDOMEN: Soft, flat, nontender. EXTREMITIES: No edema. ASSESSMENT: 1. Noninsulin dependent diabetes, diet controlled 2. Hypertension since surgery at least. 3. Carotid occlusive disease, now status post left carotid endarterectomy and left carotid subclavian bypass. PLAN: Continue postop care. Her medications are reviewed. We will consider adjusting her blood pressure medications. Other tests or procedures as warranted. Thank you for the consult. I will follow with you. TRANSINT:[id number] Voice Confirmation ID: [id number] DOCUMENT ID: [id number] SHANNEN FERRER MD at 0844 CC: [id number] DICTATION DATE: 05/23/19 2305 COAL CHUTE WORKER: 05/24/19 0248 ADM IN [place] [id number] [place] [address]
--- NOTE | 2019-05-24 09:00 | NUR ---
PT IN CHAIR AT BEDSIDE EATING BREAKFAST. I HAVE GONE IN ROOM MULITPLE TIMES ASKING IF SHE IS DONE EATING, PT STATES "I'M STILL EATING DON'T TAKE THIS FROM ME, I'M STILL EATING. I'VE BEEN WAITING ON THOSE PEOPLE TO COME BACK IN AND TELL ME MY BLOOD TYPE." REASSURED PT THAT SOON RESULTS WERE IN, I WOULD LET HER KNOW WHAT BLOOD TYPE SHE IS AND SHE NEEDS TO EAT BEFORE HER FOOD GETS COLD. PT VERBALIZED UNDERSTANDING. VSS. WILL CONT TO MONITOR.
--- NOTE | 2019-05-24 09:32 | NUR ---
SPOKE WITH , HELD PROCARDIA PER ORDER. WILL CONT TO MONITOR.
[2019-05-24] MEDS ORDERED: HYDRALAZINE HCL50 MG PO (09:50)
[2019-05-24] MEDS ORDERED: LOPRESSOR25 MG PO (09:51)
[2019-05-24] MEDS ORDERED: HEMOCYTE PLUS C1 CAP PO (09:52)
[2019-05-24] MEDS ORDERED: PLAVIX75 MG PO (09:52)
[2019-05-24] MEDS ORDERED: ULTRAM50 MG PO (09:56)
[2019-05-24] MEDS ORDERED: Procardia XL PO (09:56)
--- NOTE | 2019-05-24 10:00 | NUR ---
SUPPOSITORY GIVEN PER ORDER. ENCOURAGED PT TO USE CALL LIGHT WHEN NEEDING TO GET UP, PT VERBALIZED UNDERSTANDING. WILL CONT TO MONITOR. VSS. PT AMBULATED FROM CHAIR TO BED WITHOUT ASSISTANCE.
--- NOTE | 2019-05-24 10:08 | NUR ---
Nutrition Follow-up: Pt resting. Nurse reports pt ate <50% of breakfast this AM. Noted suppository given. Diet: Regular Wt: 143.3# (05/23); 142.1# (05/22); 148# (05/19) Last BM: 05/15 per chart Labs noted: Na 134, Ca 7.9, Glu 96 Meds noted: Lasix, Protonix, Zofran -Encourage PO intake and honor food preferences within diet restrictions. -Offer nutrition supplements with meals. -Monitor wt. -RD following.
[2019-05-24] MEDS ORDERED: COLACE100 MG PO (10:10)
--- NOTE | 2019-05-24 11:00 | NUR ---
PT IN BED SITTING UP WITH LUNCH TRAY INFRONT OF HER. PT NOT EATING ANY FOOD, ENCOURAGED PT TO EAT AND PT ROLLED HER EYES AND STARTED EATING VERY FAST. VSS. WILL CONT TO MONITOR.
[2019-05-24 12:20] LABS: ANION GAP 11.6 mmol/L (8-16); CALCIUM 8.2 mg/dL (8.5-10.1); CREATININE - SERUM 2.2 mg/dL (0.6-1.3); POTASSIUM - SERUM 4.6 mmol/L (3.5-5.1)
--- NOTE | 2019-05-24 13:00 | NUR ---
PT IN ROOM GETTING A RENAL ULTRASOUND. WILL CONT TO MONITOR.
--- NOTE | 2019-05-24 15:00 | NUR ---
SPOKE WITH , NEW ORDERS RECEIVED. D/C PT HOME, AND ADD COLACE BID 100 MG TO MAR. WILL CONT TO MONITOR.
--- NOTE | 2019-05-27 08:20 | MORECARE ---
CASE MANAGEMENT DISCHARGE SUMMARY PATIENT: CANDICE LOMBARDO UNIT: [id number] ADM DATE: 05/20/19 AGE: 69 : 48 SEX: F ROOM/BED: D.[facility] AUTHOR: ROMAN,DOC PHYSICIAN: REFERRING PHYSICIAN: MARTINE GARNICA MD DATE OF SERVICE: 05/27/19 Discharge Plan Patient Name: CANDICE LOMBARDO Facility: [facility]:[place] : 1950 Planned Disposition: Home Anticipated Discharge Date: Discharge Date: 05/24/2019 Expected LOS: Initial Reviewer: [email or web address] Initial Review Date: 05/20/2019 Generated: 05/27/19 9:20 am DCP- Discharge Planning Updated by [email or web address]: Pallavi Bowie on 05/21/19 6:[address] Patient Name: CANDICE LOMBARDO Admission Status: Urgent Accout number: [id number] Admission Date: 05-20-2019 : 1950 Admission Diagnosis: Attending: MARTINE GARNICA Current LOS: 1 Anticipated DC Date: Planned Disposition: Home Primary Insurance: [facility] [employer]UT[employer] Discharge Planning Comments: CM met with patient to complete initial dc planning assessment. CM educated patient on the CM role and verbal consent given by patient to complete assessment. Patient lives at home with her grand-daughter where she is independent with her care. At discharge patient plans to return home and feels this is a safe discharge. CM discussed availability of home health, rehab services, and medical equipment. Patient denied known discharge needs at this time. CM will continue to follow and will assist as needed with dc plans/needs. Quilting Machine Operator: Pallavi Bowie DCPIA - Discharge Planning Initial Assessment Updated by [email or web address]: Pallavi Bowie on 05/21/19 7:40 pm * Is the patient Alert and Oriented? Yes * How many steps to enter\exit or inside your home? * PCP Ahsan * Pharmacy [facility] on [address] / [address] * Preadmission Environment Home with Family * ADLs Independent * Equipment None * List name and contact numbers for known caregivers / representatives who currently or will assist patient after discharge: Renetta Magdaleno-daughter - [phone] Renetta Porter Devi - [phone] * Verbal permission to speak to the caregivers and representatives has been obtained from the patient. Yes * Community resources currently utilized None * Additional services required to return to the preadmission environment? No * Can the patient safely return to the preadmission environment? Yes * Has this patient been hospitalized within the prior 30 days at any hospital? No Last DP export: 05/21/19 6:45 pm Patient Name: CANDICE LOMBARDO Page [id number] at 0820 All edits/amendments must be made on the electronic document DICTATION DATE: 05/27/19819 EP TECHNOLOGIST: SOFIE 05/27/19819 RPT#: [id number] DC DATE:05/24/19 STATUS: DIS IN [facility] [address] [place] [address] END OF REPORT
== END 2019-05-24 16:00 | disposition home or self-care (01) | DRG 38 ==
LOC: D.CVICU 05-20 05:20 → D.SDCHOLD 05-20 05:20 → D.CVICU 05-20 09:22
PROVIDERS: Internal Medicine; ADMIT Thoracic Surgery (Cardiothoracic Vascular Surgery); ATTEND Thoracic Surgery (Cardiothoracic Vascular Surgery)
PROC: 03CN0ZZ Extirpation of Matter from Left External Carotid Artery, Open Approach (ICD-10-PCS; 2019-05-20)
PROC: 03CL0ZZ Extirpation of Matter from Left Internal Carotid Artery, Open Approach (ICD-10-PCS; 2019-05-20)
PROC: 031 Upper Arteries, Bypass (ICD-10-PCS; 2019-05-20)
PROC: 03CJ0ZZ Extirpation of Matter from Left Common Carotid Artery, Open Approach (ICD-10-PCS; principal; 2019-05-20 07:30)
DX: I65.22 Occlusion and stenosis of left carotid artery (principal); D62 Acute posthemorrhagic anemia; N17.9 Acute kidney failure, unspecified; E87.1 Hypo-osmolality and hyponatremia; E11.9 Type 2 diabetes mellitus without complications; I12.9 Hypertensive chronic kidney disease with stage 1 through stage 4 chronic kidney disease, or unspecified chronic kidney disease; E11.22 Type 2 diabetes mellitus with diabetic chronic kidney disease; N18.9 Chronic kidney disease, unspecified; Z72.0 Tobacco use

== ENCOUNTER 2019-05-25 11:19 | Inpatient (IN) | payer MEDICARE, MEDICAID ==
[~2019-05-25] VITALS: Ht 162.6 cm; Wt 64.1 kg
[~2019-05-25 11:19] MED LIST changes: +COLACE100 MG PO; +HEMOCYTE PLUS C1 CAP PO; +HYDRALAZINE HCL50 MG PO; +LOPRESSOR25 MG PO; +PLAVIX75 MG PO; +PROBIOTIC1 EAC1 PO; +Procardia XL PO; +ULTRAM50 MG PO
[2019-05-25 12:04] LABS: BASOPHILS 0.2 % (0-2); HEMATOCRIT 26.9 % (36.0-48.0); HEMOGLOBIN 8.8 g/dL (12-16); IMMATURE GRANULOCYTES 1.1 % (0-5); LYMPHOCYTES 13.6 % (15-50); MCH 29.3 pg (26.0-34.0); MCHC 32.7 g/dL (31.0-37.0); MCV 89.7 fL (80.0-100.0); MEAN PLATELET VOLUME 8.4 fL (7.4-10.4); MONOCYTES 4.8 % (2-11); NEUTROPHILS 77.3 % (40-80); RDW 12.4 % (11.5-14.5); WBC 6.3 10x3/uL (4.8-10.8)
[2019-05-25 12:05] LABS: PLATELET COUNT 236 10x3/uL (130-400)
[2019-05-25 12:14] LABS: ANION GAP 10.9 mmol/L (8-16); CALCIUM 8.5 mg/dL (8.5-10.1); CARBON DIOXIDE 26.3 mmol/L (21.0-32.0); POTASSIUM - SERUM 4.2 mmol/L (3.5-5.1)
[2019-05-25 12:21] LABS: ALBUMIN 2.6 g/dL (3.4-5.0); BILIRUBIN - TOTAL 0.42 mg/dL (0.2-1.3); PROTEIN - SERUM 7.2 g/dL (6.4-8.2)
[2019-05-25 13:11] LABS: BILIRUBIN NEGATIVE (NEGATIVE); GLUCOSE NEGATIVE (NEGATIVE); KETONE NEGATIVE (NEGATIVE); NITRITE NEGATIVE (NEGATIVE); SPECIFIC GRAVITY 1.015 (1.005-1.020); UROBILINOGEN NORMAL (NORMAL)
[2019-05-25 13:12] VITALS: BP 168/67
[2019-05-25 13:20] VITALS: BP 171/68
[2019-05-25 13:32] VITALS: BP 159/64
[2019-05-25 17:19] VITALS: BMI 24.2
[2019-05-25 20:00] VITALS: BP 101/53
[2019-05-26] VITALS: BP 116/60
[2019-05-26 04:00] VITALS: BP 124/66
[2019-05-26 06:12] LABS: BASOPHILS 0.2 % (0-2); EOSINOPHILS 3.8 % (0-7); HEMATOCRIT 24.2 % (36.0-48.0); HEMOGLOBIN 7.8 g/dL (12-16); IMMATURE GRANULOCYTES 0.6 % (0-5); LYMPHOCYTES 23.1 % (15-50); MCH 28.8 pg (26.0-34.0); MCHC 32.2 g/dL (31.0-37.0); MCV 89.3 fL (80.0-100.0); MEAN PLATELET VOLUME 8.6 fL (7.4-10.4); MONOCYTES 7.6 % (2-11); NEUTROPHILS 64.7 % (40-80); PLATELET COUNT 237 10x3/uL (130-400); RBC 2.71 10x6/uL (4.00-5.40); RDW 12.7 % (11.5-14.5); WBC 5.3 10x3/uL (4.8-10.8)
[2019-05-26 06:40] LABS: ALBUMIN 2.2 g/dL (3.4-5.0); ANION GAP 12.3 mmol/L (8-16); BILIRUBIN - TOTAL 0.29 mg/dL (0.2-1.3); CARBON DIOXIDE 26.7 mmol/L (21.0-32.0); CREATININE - SERUM 1.8 mg/dL (0.6-1.3); PROTEIN - SERUM 6.3 g/dL (6.4-8.2)
[2019-05-26 08:39] VITALS: Ht 162.6 cm; Wt 64.1 kg
[2019-05-26 10:42] VITALS: BP 178/60
[2019-05-26] MEDS ORDERED: ATIVAN0.5 MG PO (17:44)
[2019-05-26 17:50] VITALS: BP 139/74
[2019-05-26 22:30] VITALS: BP 181/55
[2019-05-27] VITALS (7 sets, daily range): BP systolic 124–188; BP diastolic 49–65
[2019-05-27 09:29] LABS: ANION GAP 7.1 mmol/L (8-16); CALCIUM 7.9 mg/dL (8.5-10.1); CARBON DIOXIDE 28.7 mmol/L (21.0-32.0); CREATININE - SERUM 1.7 mg/dL (0.6-1.3); POTASSIUM - SERUM 3.8 mmol/L (3.5-5.1)
[2019-05-27 10:02] LABS: BASOPHILS 0.2 % (0-2); EOSINOPHILS 3.7 % (0-7); IMMATURE GRANULOCYTES 1.2 % (0-5); LYMPHOCYTES 30.2 % (15-50); MCH 28.4 pg (26.0-34.0); MCHC 31.4 g/dL (31.0-37.0); MCV 90.3 fL (80.0-100.0); MEAN PLATELET VOLUME 8.7 fL (7.4-10.4); MONOCYTES 8.2 % (2-11); NEUTROPHILS 56.5 % (40-80); PLATELET COUNT 230 10x3/uL (130-400); RDW 13.5 % (11.5-14.5); WBC 4.9 10x3/uL (4.8-10.8)
[2019-05-27 10:07] LABS: HEMATOCRIT 29.9 % (36.0-48.0); HEMOGLOBIN 9.4 g/dL (12-16); RBC 3.31 10x6/uL (4.00-5.40)
--- NOTE | 2019-05-27 16:09 | MORECARE ---
CASE MANAGEMENT DISCHARGE SUMMARY PATIENT: CANDICE LOMBARDO UNIT: [id number] ADM DATE: 05/25/19 AGE: 69 : 48 SEX: F ROOM/BED: D.[facility] AUTHOR: EILEEN OWENS PHYSICIAN: REFERRING PHYSICIAN: SHANNEN FERRER MD DATE OF SERVICE: 05/27/19 Discharge Plan Patient Name: CANDICE LOMBARDO [facility] [facility] 1950 Planned Disposition: Inpatient Rehab Anticipated Discharge Date: Discharge Date: Expected LOS: Initial Reviewer: [email or web address] Initial Review Date: 05/25/2019 Generated: 05/27/19 5:08 pm DCPIA - Discharge Planning Initial Assessment Updated by [email or web address]: Atiya Smart on 05/27/19 4:05 pm * Is the patient Alert and Oriented? Yes * How many steps to enter\exit or inside your home? * PCP FRANKLYN * Pharmacy [facility] * Preadmission Environment Home Alone * ADLs Independent * List name and contact numbers for known caregivers / representatives who currently or will assist patient after discharge: GERA LIM [phone] * Verbal permission to speak to the caregivers and representatives has been obtained from the patient. N/A * Additional services required to return to the preadmission environment? Yes * Can the patient safely return to the preadmission environment? No * Has this patient been hospitalized within the prior 30 days at any hospital? Yes Patient Name: CANDICE LOMBARDO Page [phone] at 1609 All edits/amendments must be made on the electronic document DICTATION DATE: 05/27/191607 CONCRETE MIXING PLANT LABORER: SOFIE 05/27/191607 RPT#: [id number] DC DATE: STATUS: ADM IN [facility] [address] [place] [address] END OF REPORT
--- NOTE | 2019-05-27 17:20 | MORECARE ---
CASE MANAGEMENT DISCHARGE SUMMARY PATIENT: CANDICE LOMBARDO UNIT: [id number] ADM DATE: 05/25/19 AGE: 69 : 48 SEX: F ROOM/BED: D.2234 AUTHOR: ROMAN,DOC PHYSICIAN: REFERRING PHYSICIAN: SHANNEN FERRER MD DATE OF SERVICE: 05/27/19 Discharge Plan Patient Name: CANDICE LOMBARDO Facility: [facility]:[place] : 1950 Planned Disposition: Inpatient Rehab Anticipated Discharge Date: Discharge Date: Expected LOS: Initial Reviewer: [email or web address] Initial Review Date: 05/25/2019 Generated: 05/27/19 6:20 pm Comments DCP- Discharge Planning Updated by [email or web address]: Atiya Smart on 05/27/19 4:[address] LATE ENTRY: 1345 I SPOKE WITH PATIENT ABOUT HER DISCHARGE PLAN AND SHE STATED THAT SHE WAS TO GO TO INPATIENT REHAB HERE AT [facility]. PRIOR TO SURGERY SHE WAS INDEPENDENT WITH HER CARE, BUT IS NOT ANYMORE. SHE HAS BEEN ACCEPTED TO INPATIENT REHAB HERE AT [facility] WHEN SHE IS STABLE. I CALLED DR HECK AND SPOKE WITH HIM ABOUT DISCHARGE, BUT SINCE THE PATIENT WAS ON FULL LIQUID DIET, HE WANTED THE DIET TO ADVANCED BEFORE SHE WAS DISCHARGED. ORDER PLACED IN CHART. EDUARDO SIDNED AND PLACED IN CHART. CM WILL CONTINUE TO FOLLOW AND ASSIST WITH DC PLANNING NEEDS. DCPIA - Discharge Planning Initial Assessment Updated by [email or web address]: Atiya Smart on 05/27/19 4:05 pm * Is the patient Alert and Oriented? Yes * How many steps to enter\exit or inside your home? * PCP FRANKLYN * Pharmacy [facility] * Preadmission Environment Home Alone * ADLs Independent * List name and contact numbers for known caregivers / representatives who currently or will assist patient after discharge: GERA LIM [phone] * Verbal permission to speak to the caregivers and representatives has been obtained from the patient. N/A * Additional services required to return to the preadmission environment? Yes * Can the patient safely return to the preadmission environment? No * Has this patient been hospitalized within the prior 30 days at any hospital? Yes Coverage Notice Reviewer: [email or web address] - Atiya Berry Notice Issued Date-Time: 05/27/2019 13:45 Notice Type: Patient Choice Letter Notice Delivered To: Patient Relationship to Patient: Fire Control Technician B Name: Delivery Method: HAND - Hand Delivered Abby Days: Prior Verbal Notification: Recipient Understood Notice: Yes Recipient Signature: Yes Med Rec Note Co-signed by Attending: Coverage Notice Comment: EDUARDO FOR INPATIENT REHAB Last DP export: 05/27/19 3:09 p Patient Name: CANDICE LOMBARDO Page [id number] at 1720 All edits/amendments must be made on the electronic document DICTATION DATE: 05/27/191719 DRAINMAN: SOFIE 05/27/191719 RPT#: [id number] DC DATE: STATUS: ADM IN [facility] [address] [place] [address] END OF REPORT
[2019-05-28 00:57] VITALS: BP 157/54
[2019-05-28 04:57] VITALS: BP 162/67
[2019-05-28 05:52] LABS: BASOPHILS 0.2 % (0-2); EOSINOPHILS 4.8 % (0-7); HEMATOCRIT 28.2 % (36.0-48.0); HEMOGLOBIN 8.8 g/dL (12-16); IMMATURE GRANULOCYTES 0.4 % (0-5); LYMPHOCYTES 30.2 % (15-50); MCH 28.4 pg (26.0-34.0); MCHC 31.2 g/dL (31.0-37.0); MEAN PLATELET VOLUME 8.8 fL (7.4-10.4); MONOCYTES 7.6 % (2-11); NEUTROPHILS 56.8 % (40-80); PLATELET COUNT 229 10x3/uL (130-400); RDW 13.7 % (11.5-14.5); WBC 5.2 10x3/uL (4.8-10.8)
[2019-05-28 06:13] LABS: CALCIUM 7.8 mg/dL (8.5-10.1); CREATININE - SERUM 1.7 mg/dL (0.6-1.3)
[2019-05-28] MEDS ORDERED: LISINOPRIL10 MG PO (07:55)
[2019-05-28] MEDS ORDERED: NORVASC2.5 MG PO (07:56)
[2019-05-28 08:10] VITALS: BP 195/67
--- NOTE | 2019-05-28 12:47 | MORECARE ---
CASE MANAGEMENT DISCHARGE SUMMARY PATIENT: CANDICE LOMBARDO UNIT: [id number] ADM DATE: 05/25/19 AGE: 69 : 48 SEX: F ROOM/BED: D.2234 AUTHOR: ROMAN,DOC PHYSICIAN: REFERRING PHYSICIAN: SHANNEN FERRER MD DATE OF SERVICE: 05/28/19 Discharge Plan Patient Name: CANDICE LOMBARDO Facility: [facility]:[place] : 1950 Planned Disposition: Inpatient Rehab Anticipated Discharge Date: Discharge Date: Expected LOS: Initial Reviewer: [id number] Initial Review Date: 05/25/2019 Generated: 05/28/19 1:47 pm Comments DCP- Discharge Planning Updated by [email or web address]: Atiya Smart on 05/28/19 11:[address] Patient will be discharging to inpatient rehab today. I have called patient's daughter Renetta to let her know at the request of the patient. IMM served and explained. CM will continue to follow and assist as needed DCP- Discharge Planning Updated by [id number]: Atiya Smart on 05/27/19 4:[address] LATE ENTRY: 1345 I SPOKE WITH PATIENT ABOUT HER DISCHARGE PLAN AND SHE STATED THAT SHE WAS TO GO TO INPATIENT REHAB HERE AT [facility]. PRIOR TO SURGERY SHE WAS INDEPENDENT WITH HER CARE, BUT IS NOT ANYMORE. SHE HAS BEEN ACCEPTED TO INPATIENT REHAB HERE AT [facility] WHEN SHE IS STABLE. I CALLED DR HECK AND SPOKE WITH HIM ABOUT DISCHARGE, BUT SINCE THE PATIENT WAS ON FULL LIQUID DIET, HE WANTED THE DIET TO ADVANCED BEFORE SHE WAS DISCHARGED. ORDER PLACED IN CHART. EDUARDO SIDNED AND PLACED IN CHART. CM WILL CONTINUE TO FOLLOW AND ASSIST WITH DC PLANNING NEEDS. DCPIA - Discharge Planning Initial Assessment Updated by [id number]: Atiya Smart on 05/27/19 4:05 pm * Is the patient Alert and Oriented? Yes * How many steps to enter\exit or inside your home? * PCP FRANKLYN * Pharmacy [facility] * Preadmission Environment Home Alone * ADLs Independent * List name and contact numbers for known caregivers / representatives who currently or will assist patient after discharge: RENETTA LIM [phone] * Verbal permission to speak to the caregivers and representatives has been obtained from the patient. N/A * Additional services required to return to the preadmission environment? Yes * Can the patient safely return to the preadmission environment? No * Has this patient been hospitalized within the prior 30 days at any hospital? Yes Coverage Notice Reviewer: [id number] German Smart Notice Issued Date-Time: 05/27/2019 13:45 Notice Type: Patient Choice Letter Notice Delivered To: Patient Relationship to Patient: Mold Closer Name: Delivery Method: HAND - Hand Delivered Abby Days: Prior Verbal Notification: Recipient Understood Notice: Yes Recipient Signature: Yes Med Rec Note Co-signed by Attending: Coverage Notice Comment: [facility] FOR INPATIENT REHAB Reviewer: [id number] German Smart Notice Issued Date-Time: 05/28/2019 12:45 Notice Type: IM Discharge Notice Notice Delivered To: Patient Relationship to Patient: Mold Closer Name: Delivery Method: HAND - Hand Delivered Abby Days: Prior Verbal Notification: Recipient Understood Notice: Yes Recipient Signature: Yes Med Rec Note Co-signed by Attending: Coverage Notice Comment: Last DP export: 05/27/19 4:20 p Patient Name: CANDICE LOMBARDO Page [phone] at 1247 All edits/amendments must be made on the electronic document DICTATION DATE: 05/28/191246 BLOW MOLD TECHNICIAN: SOFIE 05/28/19 124 RPT#: [id number] DC DATE: STATUS: ADM IN [facility] [address] [place] [address] END OF REPORT
[2019-05-28 12:48] VITALS: BP 173/57
--- NOTE | 2019-05-29 09:03 | MORECARE ---
CASE MANAGEMENT DISCHARGE SUMMARY PATIENT: CANDICE LOMBARDO UNIT: [id number] ADM DATE: 05/25/19 AGE: 69 : 48 SEX: F ROOM/BED: D.2234 AUTHOR: ROMAN,DOC PHYSICIAN: REFERRING PHYSICIAN: SHANNEN FERRER MD DATE OF SERVICE: 05/29/19 Discharge Plan Patient Name: CANDICE LOMBARDO Facility: [facility]:[place] : 1950 Planned Disposition: Inpatient Rehab Anticipated Discharge Date: Discharge Date: 05/28/2019 Expected LOS: Initial Reviewer: [id number] Initial Review Date: 05/25/2019 Generated: 05/29/19 10:02 am Comments DCP- Discharge Planning Updated by [id number]: Atiya Smart on 05/28/19 11:[address] Patient will be discharging to inpatient rehab today. I have called patient's daughter Renetta to let her know at the request of the patient. IMM served and explained. CM will continue to follow and assist as needed DCP- Discharge Planning Updated by [id number]: Atiya Smart on 05/27/19 4:[address] LATE ENTRY: 1345 I SPOKE WITH PATIENT ABOUT HER DISCHARGE PLAN AND SHE STATED THAT SHE WAS TO GO TO INPATIENT REHAB HERE AT [facility]. PRIOR TO SURGERY SHE WAS INDEPENDENT WITH HER CARE, BUT IS NOT ANYMORE. SHE HAS BEEN ACCEPTED TO INPATIENT REHAB HERE AT [facility] WHEN SHE IS STABLE. I CALLED DR HECK AND SPOKE WITH HIM ABOUT DISCHARGE, BUT SINCE THE PATIENT WAS ON FULL LIQUID DIET, HE WANTED THE DIET TO ADVANCED BEFORE SHE WAS DISCHARGED. ORDER PLACED IN CHART. EDUARDO SIDNED AND PLACED IN CHART. CM WILL CONTINUE TO FOLLOW AND ASSIST WITH DC PLANNING NEEDS. DCPIA - Discharge Planning Initial Assessment Updated by [id number]: Atiya Smart on 05/27/19 4:05 pm * Is the patient Alert and Oriented? Yes * How many steps to enter\exit or inside your home? * PCP FRANKLYN * Pharmacy [facility] * Preadmission Environment Home Alone * ADLs Independent * List name and contact numbers for known caregivers / representatives who currently or will assist patient after discharge: RENETTA LIM [phone] * Verbal permission to speak to the caregivers and representatives has been obtained from the patient. N/A * Additional services required to return to the preadmission environment? Yes * Can the patient safely return to the preadmission environment? No * Has this patient been hospitalized within the prior 30 days at any hospital? 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 Name: Delivery Method: HAND - Hand Delivered Abby Days: Prior Verbal Notification: Recipient Understood Notice: Yes Recipient Signature: Yes Med Rec Note Co-signed by Attending: Coverage Notice Comment: [facility] FOR INPATIENT REHAB Reviewer: [id number] German Smart Notice Issued Date-Time: 05/28/2019 12:45 Notice Type: IM Discharge Notice Notice Delivered To: Patient Relationship to Patient: Stab Setter And Driller Name: Delivery Method: HAND - Hand Delivered Abby Days: Prior Verbal Notification: Recipient Understood Notice: Yes Recipient Signature: Yes Med Rec Note Co-signed by Attending: Coverage Notice Comment: Last DP export: 05/28/19 11:47 a Patient Name: CANDICE LOMBARDO Page [phone] at 0903 All edits/amendments must be made on the electronic document DICTATION DATE: 05/29/19901 REGISTERED PHLEBOTOMIST PART TIME: SOFIE 05/29/19901 RPT#: [id number] DC DATE:05/28/19 STATUS: DIS IN [place] [id number] [place] [address] END OF REPORT
== END 2019-05-28 14:49 | DRG 812 ==
LOC: D.ER 11:19 → D.MS 16:08
PROVIDERS: Emergency Medicine; Family Medicine; ADMIT Family Medicine; ATTEND Family Medicine
DX: D62 Acute posthemorrhagic anemia (principal); K56.7 Ileus, unspecified; N17.9 Acute kidney failure, unspecified; E87.1 Hypo-osmolality and hyponatremia; I10 Essential (primary) hypertension

== ENCOUNTER 2019-05-28 15:26 | Inpatient (IN) | payer MEDICARE, MEDICAID ==
[~2019-05-28] VITALS: Ht 162.6 cm; Wt 66.7 kg
[~2019-05-28 15:26] MED LIST changes: +LISINOPRIL10 MG PO; +NORVASC2.5 MG PO
[2019-05-28 19:21] VITALS: BP 170/63; BMI 25.3
[2019-05-28 20:00] VITALS: BP 191/70
[2019-05-29 07:59] LABS: ANION GAP 9.7 mmol/L (8-16); BASOPHILS 0 % (0-2); CALCIUM 8.2 mg/dL (8.5-10.1); CARBON DIOXIDE 27.8 mmol/L (21.0-32.0); CREATININE - SERUM 1.4 mg/dL (0.6-1.3); EOSINOPHILS 2.8 % (0-7); HEMATOCRIT 28.7 % (36.0-48.0); HEMOGLOBIN 8.9 g/dL (12-16); IMMATURE GRANULOCYTES 0.3 % (0-5); LYMPHOCYTES 22.3 % (15-50); MCH 28.3 pg (26.0-34.0); MCV 91.1 fL (80.0-100.0); MEAN PLATELET VOLUME 8.9 fL (7.4-10.4); MONOCYTES 5.5 % (2-11); NEUTROPHILS 69.1 % (40-80); PLATELET COUNT 227 10x3/uL (130-400); POTASSIUM - SERUM 4.5 mmol/L (3.5-5.1); RBC 3.15 10x6/uL (4.00-5.40); RDW 13.4 % (11.5-14.5); WBC 6.5 10x3/uL (4.8-10.8)
[2019-05-29 08:32] VITALS: BP 194/62
[2019-05-29 13:20] VITALS: Ht 162.6 cm; Wt 66.7 kg
[2019-05-29 21:08] VITALS: BP 168/53
[2019-05-30 19:50] VITALS: BP 170/65
[2019-05-31 07:08] LABS: BASOPHILS 0 % (0-2); EOSINOPHILS 3.4 % (0-7); IMMATURE GRANULOCYTES 0.5 % (0-5); LYMPHOCYTES 25.8 % (15-50); MCH 28.5 pg (26.0-34.0); MCV 91.8 fL (80.0-100.0); MEAN PLATELET VOLUME 8.8 fL (7.4-10.4); MONOCYTES 5.9 % (2-11); NEUTROPHILS 64.4 % (40-80); PLATELET COUNT 216 10x3/uL (130-400); RBC 3.16 10x6/uL (4.00-5.40); RDW 13.6 % (11.5-14.5); WBC 5.6 10x3/uL (4.8-10.8)
[2019-05-31 07:25] LABS: ANION GAP 10.3 mmol/L (8-16); CALCIUM 8.1 mg/dL (8.5-10.1); CARBON DIOXIDE 28.5 mmol/L (21.0-32.0); CREATININE - SERUM 1.5 mg/dL (0.6-1.3); POTASSIUM - SERUM 4.8 mmol/L (3.5-5.1)
[2019-05-31 07:33] VITALS: BP 154/64
[2019-05-31 11:08] VITALS: BP 154/64
[2019-06-01 00:17] VITALS: BP 202/78
[2019-06-01 08:11] VITALS: BP 174/60
[2019-06-02 00:44] VITALS: BP 186/70
[2019-06-02 08:00] VITALS: BP 166/60
[2019-06-02 20:00] VITALS: BP 142/50
[2019-06-03 06:01] LABS: BASOPHILS 0.1 % (0-2); EOSINOPHILS 2.3 % (0-7); HEMATOCRIT 30.2 % (36.0-48.0); HEMOGLOBIN 9.3 g/dL (12-16); IMMATURE GRANULOCYTES 0.3 % (0-5); LYMPHOCYTES 19.8 % (15-50); MCH 28.3 pg (26.0-34.0); MCHC 30.8 g/dL (31.0-37.0); MCV 91.8 fL (80.0-100.0); MEAN PLATELET VOLUME 8.8 fL (7.4-10.4); MONOCYTES 5.5 % (2-11); PLATELET COUNT 218 10x3/uL (130-400); RBC 3.29 10x6/uL (4.00-5.40); RDW 13.6 % (11.5-14.5); WBC 7.3 10x3/uL (4.8-10.8)
[2019-06-03 06:27] LABS: ANION GAP 8.2 mmol/L (8-16); CALCIUM 8.5 mg/dL (8.5-10.1); CARBON DIOXIDE 29.7 mmol/L (21.0-32.0); CREATININE - SERUM 1.5 mg/dL (0.6-1.3); POTASSIUM - SERUM 4.9 mmol/L (3.5-5.1)
[2019-06-03 08:09] VITALS: BP 196/65
[2019-06-03 20:00] VITALS: BP 159/57
[2019-06-04 08:00] VITALS: BP 206/78
--- NOTE | 2019-06-04 10:50 | RHP ---
PATIENT: CANDICE LOMBARDO MEDICAL RECORD: [id number] ACCOUNT: [id number] LOCATION:[facility]1119 : [birth year] ADMISSION DATE: 05/28/19 REHABILITATION HISTORY AND PHYSICAL EXAMINATION POST ADMISSION PHYSICIAN EXAMINATION ADMITTING DIAGNOSIS: Debility secondary to bibasilar pneumonia. HISTORY OF PRESENT ILLNESS: The patient is a 69-year-old female patient status post left carotid endarterectomy and left carotid subclavian bypass on 05/20/2019. She was discharged home from the hospital on 05/24/2019. She returned to the ER on 05/25/2019 complaining of abdominal pain and bloating, unable to pass gas, and intractable nausea and vomiting. She has had a very difficult time ambulating. She has some alteration of her mental status. The patient was placed on some new medications on discharge. The patient does not have any help at home due to her daughter being quarantined from the coronavirus. On arrival to the ER, she did clear a little bit, was very weak. Her post-incision sites to her neck were intact. There were no changes there. The patient was noted to have a creatinine of 2.0 and readmitted and hematocrit of 24. The patient equilibrated from acute blood loss anemia. She does have a history of chronic anemia also. She had been given packed red blood cells. She continued to have nausea and dry heaving. Previously, she was living with her daughter and was independent with ADLs and mobility. The patient is currently setup mid to mod assist for ADLs and only able to ambulate approximately 12 feet without growing fatigue, no short of breath. She is motivated to regain her strength and return home. COMORBIDITIES: Include acute kidney injury, bradycardia, carotid stenosis, decrease in mobility, difficulty walking. She has got left basilar pneumonia. She has got diabetes, hyperglycemia, hyponatremia, hypertensive kidney disease. She has got some vertigo, tremor and gastroesophageal reflux disease. PAST MEDICAL HISTORY: Significant for tremors, cataracts, dentures, had a history of diet-controlled diabetes, carotid stenosis, got a history of acid reflux, arthritis. PAST SURGICAL HISTORY: Includes a left knee replacement. She has had cervical disk surgery, got a history of skin cancers, tonsillectomy and adenoidectomy. She has had rotator cuff surgery. ALLERGIES: MORPHINE. CURRENT MEDICATIONS: Include lisinopril 10 mg daily, Lactinex 1 tab daily. She is on Plavix 75 mg daily, aspirin 81 mg once daily, Norvasc 2.5 mg daily. She is on polyethylene glycol 17 grams in 8 ounces of water daily. She is on Pepcid 20 mg at bedtime, metoprolol 12.5 mg b.i.d., melatonin 6 mg at bedtime, hydralazine 50 mg t.i.d., Hemocyte 1 cap b.i.d., Colace 100 mg b.i.d., tramadol 50 mg every 6 hours p.r.n. and Tylenol as needed. HABITS: No alcohol or tobacco use. FAMILY HISTORY: Noncontributory. SOCIAL HISTORY: The patient hopes to return back home and get back to her prior level of functioning. HISTORY AND PHYSICAL [id number] CANDICE LOMBARDO REVIEW OF SYSTEMS: GENERAL: Does complain of some weakness or fatigue. HEENT: Denies cold, cough, or congestion. CARDIOVASCULAR: Denies any chest pain. PHYSICAL EXAMINATION: VITAL SIGNS: Stable, afebrile. GENERAL: A well-developed female, in no acute distress upon exam. HEENT: Normocephalic and atraumatic. Mucosa moist. NECK: Supple. She does have healing area to her neck. LUNGS: Clear at this time with no wheezing, rhonchi or rales. HEART: Regular rate and rhythm. She does have a holosystolic murmur. ABDOMEN: Soft, benign and nondistended. Positive bowel sounds times 4. EXTREMITIES: No clubbing, cyanosis or edema. NEUROLOGIC: She does have some noted proximal muscle weakness. LABORATORY DATA: White count is 6.5, H&H of 8.9 and 28.7, platelet count was 227. Sodium 136, potassium 4.5, BUN and creatinine of 20 and 1.4 and blood sugar was noted to be 120. ASSESSMENT: This is a 69-year-old female patient admitted to the rehab with a working diagnosis of debility secondary to recent carotid surgery and also bibasilar pneumonia and anemia. The patient has potential to make improvement. We instituted the following multidisciplinary therapies including, but not limited to physical, occupational, respiratory, speech, nutritional services, prosthetics and orthotics. Given her complex medical condition and risks for more complications, rehabilitation services cannot be provided at a low level of care such as half-way facility. PLAN: 1. Admit to [facility] for intensive inpatient therapy to include the following disciplines: A. Physical therapy to improve gait, all transfer skills and bed mobility to a modified independent level. B. Occupational therapy to improve activities of daily living. C. Case management to assist with discharge planning and placement options. D. Nutrition to assist with nutritional needs. E. Rehabilitation nursing to assist in monitoring the patient's underlying medical conditions and to assist with any type of bowel or bladder management. 2. The patient's current medication and medical care will be continued. 3. The patient will be placed on standard fall precautions. 4. The patient's estimated length of stay is approximately 7-10 days. 5. We will discuss this patient during care team staff meeting this week. TRANSINT:[id number] Voice Confirmation ID: [id number] DOCUMENT ID: [id number] OLGA notes whether there has been none or any medical/functional change since admission: - No change since prescreen. OLGA attests patient continues to be appropriate for IRF: - Continues to be appropriate. HISTORY AND PHYSICAL [id number] CANDICE LOMBARDO,WILDA BROWN MD at 1050 CC: [id number] DICTATION DATE: 05/29/19912 SENIOR FACILITIES MANAGER: 05/29/19 1031 ADM IN [place] [id number] [place] [id number]
== END 2019-06-04 10:00 | disposition home health service (06) | DRG 947 ==
LOC: D.REHAB 15:26
PROVIDERS: ADMIT Emergency Medicine; ATTEND Emergency Medicine
DX: R53.81 Other malaise (principal); J18.9 Pneumonia, unspecified organism; D62 Acute posthemorrhagic anemia; K56.7 Ileus, unspecified; N17.9 Acute kidney failure, unspecified; E87.1 Hypo-osmolality and hyponatremia; I10 Essential (primary) hypertension

== ENCOUNTER 2019-11-04 15:30 | Outpatient (CLI) | payer MEDICARE, MEDICAID ==
[2019-05-29 13:20] VITALS: BMI 25.2
== END 2019-11-04 16:30 | disposition home or self-care (01) ==
LOC: D.MAMMO 15:30
PROVIDERS: ATTEND Nurse Practitioner Family
DX: Z12.31 Encounter for screening mammogram for malignant neoplasm of breast (principal)

== ENCOUNTER → 2019-11-12 10:39 | Outpatient (CLI) | payer MEDICARE, MEDICAID ==
[2019-05-29 13:20] VITALS: BMI 25.2
== END | disposition home or self-care (01) ==
LOC: D.US 10:39
PROVIDERS: ATTEND Thoracic Surgery (Cardiothoracic Vascular Surgery)
DX: I65.23 Occlusion and stenosis of bilateral carotid arteries (principal)